=== PATIENT | male | born 1960 | race Caucasian/White ===

== ENCOUNTER 2022-07-26 21:39 | Emergency (ER) | payer BC | END 2022-07-26 23:55 | disposition home or self-care (01) | LOC: JP.ED 21:39 | DX: S83.91XA Sprain of unspecified site of right knee, initial encounter (principal); Z79.899 Other long term (current) drug therapy; W01.0XXA Fall on same level from slipping, tripping and stumbling without subsequent striking against object, initial encounter | CPT/HCPCS: 73562-26-RT; 73562-RT; 99283 ==